=== PATIENT | female | born 1985 | race African-American/Black ===

== ENCOUNTER 2020-01-17 10:21 | Emergency (ER) | payer OTHER ==
[~2020-01-17] VITALS: Ht 162.6 cm; Wt 71.7 kg
[~2020-01-17 10:21] MED LIST: BACTRIM DS TAB1 EAC1 ORAL; CLARITIN10 M1 ORAL; IBUPROFEN800 MG ORAL; KEFLEX500 MG ORAL; LEVOFLOXACIN750 MG ORAL; MONTELUKAST SOD10 MG ORAL; NITROFURANTOIN100 M2 ORAL; NKM; PHENAZOPYRIDIN200 MG ORAL; PREDNISONE20 MG ORAL
--- NOTE | 2020-01-17 10:45 | NUR ---
ED Nurse Note: PATIENT WALKED IN TO ER FROM HOME. PER PT. SHE HAS LUPUS FLARE UP THAT STARTED LAST NIGHT AND GOT WORSE TODAY. PATIENT AAOX 4, VSS AT THIS TIME
[2020-01-17 10:55] VITALS: BP 105/64
[2020-01-17 11:25] LABS: APPEARANCE,URINE SLIGHTLY CLOUDY; BILIRUBIN, URINE NEGATIVE (NEGATIVE); GLUCOSE, URINE (UA) NEGATIVE (NEGATIVE); KETONES,URINE NEGATIVE (NEGATIVE); LEUKOCYTE ESTERASE ,URINE 1+ (NEGATIVE); NITRITE,URINE NEGATIVE (NEGATIVE); PH,URINE 8 (4.5-8.0); PROTEIN,URINE 1+ (NEGATIVE); UROBILINOGEN,URINE 1 MG/DL (0.0-1.0)
[2020-01-17 11:33] LABS: ANION GAP 10 mmol/L (5-15); BLOOD UREA NITROGEN 12 mg/dL (7-18); CALCIUM 8.8 MG/DL (8.5-10.1); CARBON DIOXIDE 23 MMOL/L (21-32); CHLORIDE 106 MMOL/L (98-107); CREATININE 0.9 MG/DL (0.55-1.30); POTASSIUM 4.1 MMOL/L (3.5-5.1); SODIUM 139 MMOL/L (136-145)
[2020-01-17 11:34] LABS: COLOR,URINE PALE YELLOW
[2020-01-17 11:37] LABS: HEMOGLOBIN 11.3 G/DL (12.0-16.0); MEAN CORPUSCULAR VOLUME 96 FL (80-99); PLATELET COUNT 204 K/UL (150-450); RED BLOOD COUNT 3.87 M/UL (4.20-5.40); RED CELL DISTRIBUTION WIDTH 14.2 % (11.6-14.8); WHITE BLOOD COUNT 2.4 K/UL (4.8-10.8)
[2020-01-17 11:38] LABS: ALANINE AMINOTRANSFERASE 14 U/L (12-78); ALBUMIN/GLOBULIN RATIO 1.1 (1.0-2.7); ALKALINE PHOSPHATASE 33 U/L (46-116); ASPARTATE AMINO TRANSFERASE 18 U/L (15-37); BILIRUBIN,TOTAL 0.7 MG/DL (0.2-1.0)
[2020-01-17] MEDS ORDERED: NITROFURANTOIN100 M2 ORAL (12:04)
--- NOTE | 2020-01-17 12:24 | Diagnostic Imaging Report ---
Procedure: XRAY Chest 1v Reason for study: Reason For Exam: COUGH Comparison films: 02/07/2016. FINDINGS: A single one view chest is obtained. Vascularity is normal. The lung morales are clear bilaterally. Cardiac and mediastinal silhouette are within normal limits. CP angles are sharp. The bony thorax appear unremarkable. IMPRESSION: NO ACUTE CARDIOPULMONARY DISEASE.
[2020-01-17] MEDS ORDERED: Ketorolac 30mg Inj IV ONE (12:30)
--- NOTE | 2020-01-17 12:41 | Emergency Room Report ---
History of Present Illness General Chief Complaint: Pain Source: Patient Present Illness HPI 34-year-old female with history of "an autoimmune disease" though she says all of her testing throughout her life has been normal, here with bilateral foot cramping. Patient says that she has gone through extensive testing with hematology oncology multiple times at [facility] and all of the testing has been negative. Says that she has chronic leukopenia that her white blood cell count is around 3.0. At this time she is demanding Covid testing. However she denies any headaches, vision changes, loss of taste, fevers, chills, chest pain, palpitation, shortness of breath, back pain, abdominal pain, nausea, vomiting, diarrhea, dysuria. 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 Documentation-PMH Past Medical History: No History, Except For Review of Systems All Other Systems: negative except mentioned in HPI Physical Exam Vital Signs Date Time Temp Pulse Resp B/P (MAP) Pulse Ox O2 Delivery O2 Flow Rate FiO2 01/17/20 10:38 98.8 74 16 105/64 (78) 100 Room Air Sp02 EP Interpretation: reviewed, normal General Appearance: no apparent distress, alert, non-toxic Head: normocephalic, atraumatic Eyes: bilateral eye normal inspection, bilateral eye PERRL ENT: hearing grossly normal, normal pharynx, no angioedema, normal voice Neck: full range of motion, supple/symm/no masses Respiratory: chest non-tender, lungs clear, normal breath sounds, speaking full sentences Cardiovascular #1: regular rate, rhythm, no edema Cardiovascular #2: 2+ carotid (R), 2+ carotid (L), 2+ radial (R), 2+ radial (L), 2+ dorsalis pedis (R), 2+ dorsalis pedis (L) Gastrointestinal: normal bowel sounds, non tender, soft, non-distended, no guarding, no rebound Rectal: deferred Genitourinary: normal inspection, no CVA tenderness Musculoskeletal: back normal, normal range of motion, gait/station normal, non- tender Neurologic: alert, motor strength/tone normal, sensory intact, responsive, speech normal Psychiatric: judgement/insight normal, memory normal, mood/affect normal, no suicidal/homicidal ideation Lymphatic: no adenopathy Medical Decision Making Diagnostic Impression: Primary Impression: UTI (urinary tract infection) Additional Impression: Leukopenia ER Course Laboratory Tests Test 01/17/20 11:13 White Blood Count 2.4 K/UL (4.8-10.8) L Red Blood Count 3.87 M/UL (4.20-5.40) L Hemoglobin 11.3 G/DL (12.0-16.0) L Hematocrit 37.0 % (37.0-47.0) Mean Corpuscular Volume 96 FL (80-99) Mean Corpuscular Hemoglobin 29.2 PG (27.0-31.0) Mean Corpuscular Hemoglobin Concent 30.5 G/DL (32.0-36.0) L Red Cell Distribution Width 14.2 % (11.6-14.8) Platelet Count 204 K/UL (150-450) Mean Platelet Volume 9.5 FL (6.5-10.1) Neutrophils (%) (Auto) % (45.0-75.0) Lymphocytes (%) (Auto) % (20.0-45.0) Monocytes (%) (Auto) % (1.0-10.0) Eosinophils (%) (Auto) % (0.0-3.0) Basophils (%) (Auto) % (0.0-2.0) Neutrophils % (Manual) Pending Lymphocytes % (Manual) Pending Platelet Estimate Pending Platelet Morphology Pending Urine Color Pale yellow Urine Appearance Slightly cloudy Urine pH 8 (4.5-8.0) Urine Specific Lewis 1.010 (1.005-1.035) Urine Protein 1+ (NEGATIVE) H Urine Glucose (UA) Negative (NEGATIVE) Urine Ketones Negative (NEGATIVE) Urine Blood Negative (NEGATIVE) Urine Nitrite Negative (NEGATIVE) Urine Bilirubin Negative (NEGATIVE) Urine Urobilinogen 1 MG/DL (0.0-1.0) H Urine Leukocyte Esterase 1+ (NEGATIVE) H Urine RBC 0-2 /HPF (0 - 2) Urine WBC 0-2 /HPF (0 - 2) Urine Squamous Epithelial Cells Moderate /LPF (NONE/OCC) H Urine Bacteria Many /HPF (NONE) H Urine Mucus Few /LPF (NONE/OCC) H Urine HCG, Qualitative Negative (NEGATIVE) Sodium Level 139 MMOL/L (136-145) Potassium Level 4.1 MMOL/L (3.5-5.1) Chloride Level 106 MMOL/L (98-107) Carbon Dioxide Level 23 MMOL/L (21-32) Anion Gap 10 mmol/L (5-15) Blood Urea Nitrogen 12 mg/dL (7-18) Creatinine 0.9 MG/DL (0.55-1.30) Estimated Glomerular Filtration Rate > 60 mL/min (>60) Glucose Level 94 MG/DL (74-106) Calcium Level 8.8 MG/DL (8.5-10.1) Total Bilirubin 0.7 MG/DL (0.2-1.0) Aspartate Amino Transferase (AST) 18 U/L (15-37) Alanine Aminotransferase (ALT) 14 U/L (12-78) Alkaline Phosphatase 33 U/L (46-116) L Total Protein 7.8 G/DL (6.4-8.2) Albumin 4.0 G/DL (3.4-5.0) Globulin 3.8 g/dL Albumin/Globulin Ratio 1.1 (1.0-2.7) Comparison films: 02/07/2016. FINDINGS: A single one view chest is obtained. Vascularity is normal. The lung morales are clear bilaterally. Cardiac and mediastinal silhouette are within normal limits. CP angles are sharp. The bony thorax appear unremarkable. IMPRESSION: NO ACUTE CARDIOPULMONARY DISEASE. 34-year-old female here with bilateral foot cramping. Patient denies any fevers, chills, cough, loss of taste, loss of smell. She was demanding COVID-19 testing. However I repeatedly explained to the patient that there was no indication to do this and due to the limited number of tests that we have in our emergency department we are only limited to testing in patients who are in respiratory distress or needing admission. She had completely normal vital signs and her chest x-ray was unremarkable. I tried to explain this to the patient but she became very angry saying "you need to check me. I do want to go to an outpatient testing center because they do not change their gowns. I have seen them." I explained to the patient that despite this there was no indication for testing her at this time because she does not have any symptoms. She was offered IV Toradol which she has received before in the past. However when the nurse attempted to give this medicine the patient said "I could have a reaction to this because my white blood cells are low." I told the patient that her low white blood cell count was not a contraindication to Toradol. She has no evidence of bleeding or kidney injury and thus Toradol would be safe to give. The patient became angry and said then requested to leave. She had evidence of urinary tract infection which she says that she suffers from repeatedly. She says that she refuses to take any antibiotics. She was given a prescription for Macrobid and told that she should take it for her urinary tract infection. I told her repeatedly that her vital signs and labs and imaging were all largely unremarkable and there was no indication for admission to the hospital and that she should follow-up with her residence director. However the patient was refusing to leave and demanding a Covid test "because my white blood cells are low." Patient was swabbed for COVID-19 and told that we will call her with a positive result. Was told to come back to the emergency department with any worsening symptoms. Discharged in stable condition. Last Vital Signs Date Time Temp Pulse Resp B/P (MAP) Pulse Ox O2 Delivery O2 Flow Rate FiO2 01/17/20 10:55 98.8 16 105/64 100 Room Air 01/17/20 10:38 74 Disposition: HOME, SELF-CARE Condition: Stable Scripts Nitrofurantoin Monohyd/M-Cryst* (MACROBID 100 MG*) 100 Mg Capsule 100 MG ORAL EVERY 12 HOURS for 5 Days, CAP Prov: Vladimir Benites M.D. 01/17/20 Referrals: [facility] Patient Instructions: Urinary Tract Infection, [id number] Vladimir Benites M.D. Jan 17, 2020 12:41
--- NOTE | 2020-01-17 12:47 | NUR ---
ED Nurse Note: patient requested Toradol from ER MD, and when RN went in to the room to administer it she refused it.
--- NOTE | 2020-01-17 12:48 | NUR ---
ED Nurse Note: TORADOL WAS WAISTED IN PYXES, WITNESSED BY LOBO KELLER.
[2020-01-17 12:58] VITALS: BP 105/64
--- NOTE | 2020-01-17 12:58 | NUR ---
ER DISCHARGE NOTE: Patient is cleared to be discharged per ERMD, pt is aox4, on room air, with stable vital signs. pt was given dc and prescription instructions, pt was able to verbalize understanding, pt id band and iv site removed without complications. pt is able to ambulate with steady gait. pt took all belongings.
== END 2020-01-17 12:58 | disposition home or self-care (01) ==
LOC: EMR 11:10
DX: N39.0 Urinary tract infection, site not specified (principal); D72.819 Decreased white blood cell count, unspecified; Z88.5 Allergy status to narcotic agent; Z88.0 Allergy status to penicillin; Z88.1 Allergy status to other antibiotic agents; Z91.018 Allergy to other foods
CPT/HCPCS: 36415; 71045; 80053; 81003; 81025; 85007; 85025; 87086; U0002; Z7502; 99283